=== PATIENT | male | born 2000 | race Caucasian/White ===

== ENCOUNTER 2020-05-14 21:02 | Emergency (ER) | payer OTHER ==
[~2020-05-14] VITALS: Ht 172.7 cm; Wt 68.0 kg
== END 2020-05-14 22:56 | disposition home or self-care (01) ==
LOC: ER 21:02 → EMR PED 21:21 → ER 22:56
DX: R22.32 Localized swelling, mass and lump, left upper limb (principal); Z03.818 Encounter for observation for suspected exposure to other biological agents ruled out